=== PATIENT | male | born 1950 | race Caucasian/White ===

== ENCOUNTER 2021-08-12 12:42 | Observation (INO) ==
[2021-08-12 13:36] LABS: Basophils # 0.1 K/mcL (0.0-0.2); Basophils % 0.8 %; Eosinophils # 0.4 K/mcL (0.0-0.6); Eosinophils % 4.5 %; Hematocrit 39.6 % (37.5-50.1); Hemoglobin 12.8 g/dL (12.9-16.9); Immature Granulocytes % 1.4 % (0-4); Lymphocytes # 1.7 K/mcL (0.6-4.6); Mean Corpuscular HGB Conc 32.3 g/dL (31.6-35.5); Mean Corpuscular Hemoglobin 30.5 pg (28.0-33.3); Mean Corpuscular Volume 94.3 fL (83.0-100.0); Mean Platelet Volume 10.4 fL (9.4-12.4); Monocytes # 0.8 K/mcL (0.0-1.3); Neutrophils # 5.5 K/mcL (1.6-8.9); Platelet Count 175 K/mcL (140-400); Segmented Neutrophils % 64.3 %; White Blood Count 8.5 K/mcL (4.3-11.1)
[2021-08-12 13:57] LABS: BUN/Creatinine Ratio 23 (6-26); Blood Urea Nitrogen 34 mg/dL (8-23); Calcium 9.3 mg/dL (8.6-10.3); Carbon Dioxide 22 mEq/L (23-29); Chloride 106 mEq/L (98-107); Glucose 175 mg/dL (70-105); Osmolality,Calculated 294 (280-300); Potassium 4.7 mEq/L (3.5-5.1); Sodium 136 mEq/L (136-145); Troponin I < 0.03 ng/mL (< 0.04); eGFR For African Americans 59 (> 60); eGFR For Non-African Americans 48 (> 60)
[2021-08-12] MEDS ORDERED: D5% in Water 1,000 ML IVC PRN (14:59)
[2021-08-12] MEDS ORDERED: Acetaminophen 325 MG TABLET PO PRN (14:59)
[2021-08-12] MEDS ORDERED: Naloxone 0.4 MG/ML INJ IVP PRN (14:59)
[2021-08-12] MEDS ORDERED: *HR* Dextrose 50 % in Water (Syg) 50 ML SYRINGE IVP PRN (14:59)
[2021-08-12] MEDS ORDERED: Dextrose 4 GM Chewable Tablets PO PRN ×2 (14:59)
[2021-08-12] MEDS ORDERED: Perflutren Lipid Microsphere 1.3 ML in 0.9 % Sodium Chloride 8.7 ML IVP PRN (15:00)
[2021-08-12] MEDS ORDERED: Furosemide 40 MG/4 ML VIAL IVP ONE (15:30)
[2021-08-12] MEDS: Insulin LISPRO 300 UNITS/3 ML VIAL SUBQ SCH (16:15)
[2021-08-12] MEDS: *HR* Heparin 5,000 UNIT/ML VIAL SQ SCH (16:19)
[2021-08-12] MEDS ORDERED: carvediloL 25 MG TABLET PO SCH (17:00)
[2021-08-12 18:22] LABS: Troponin I 0.03 ng/mL (< 0.04)
[2021-08-12 18:37] LABS: Thyroid Stimulating Hormone 4.902 mcIU/mL (0.340-5.600)
[2021-08-12] MEDS: Sacubitril/Valsartan 24/26 MG 1 TABLET PO SCH (20:48)
[2021-08-12] MEDS ORDERED: Insulin DETEMIR 100 UNIT/ML X5UNITS SUBQ SCH (21:00)
[2021-08-13] MEDS ORDERED: Ipratropium/Albuterol Neb 3 ML IH ONE (00:37)
[2021-08-13] MEDS: *HR* Heparin 5,000 UNIT/ML VIAL SQ SCH (05:01)
[2021-08-13 05:37] LABS: Calcium 9.4 mg/dL (8.6-10.3); Chol/HDL Ratio 4.7 (0-4.9); Potassium 4.7 mEq/L (3.5-5.1)
[2021-08-13 05:46] LABS: Basophils # 0.1 K/mcL (0.0-0.2); Basophils % 0.9 %; Eosinophils # 0.4 K/mcL (0.0-0.6); Eosinophils % 4.5 %; Hematocrit 38.4 % (37.5-50.1); Hemoglobin 12.2 g/dL (12.9-16.9); Immature Granulocytes % 1.7 % (0-4); Lymphocytes # 1.6 K/mcL (0.6-4.6); Lymphocytes % 21.3 %; Mean Corpuscular HGB Conc 31.8 g/dL (31.6-35.5); Mean Corpuscular Hemoglobin 30.5 pg (28.0-33.3); Mean Platelet Volume 10.6 fL (9.4-12.4); Monocytes # 0.8 K/mcL (0.0-1.3); Monocytes % 9.7 %; Neutrophils # 4.8 K/mcL (1.6-8.9); Platelet Count 171 K/mcL (140-400); Red Cell Distribution Width 15.1 % (11.5-14.5); Segmented Neutrophils % 61.9 %; White Blood Count 7.7 K/mcL (4.3-11.1)
[2021-08-13 06:16] LABS: Estimated Average Glucose 189 mg/dl; Hemoglobin A1C 8.2 %
[2021-08-13 07:46] VITALS: PULSE 58; O2SAT 96
[2021-08-13] MEDS: Sacubitril/Valsartan 24/26 MG 1 TABLET PO SCH (07:56)
[2021-08-13] MEDS ORDERED: carvediloL 25 MG TABLET PO SCH (08:00)
[2021-08-13] MEDS: Insulin LISPRO 300 UNITS/3 ML VIAL SUBQ SCH ×2 (08:29→11:42)
[2021-08-13] MEDS ORDERED: Loratadine 10 MG TABLET PO SCH (09:00)
[2021-08-13] MEDS ORDERED: Torsemide 20 MG TABLET PO SCH (09:00)
[2021-08-13] MEDS ORDERED: Aspirin 81 MG TAB.CHEW PO SCH (09:00)
[2021-08-13 11:13] VITALS: BP 134/70; TEMP 97.8
== END 2021-08-13 14:35 | disposition home or self-care (01) ==
LOC: 3BNU 12:42 → EMEROOARM 12:42 → 3BNU 15:00
PROVIDERS: ADMIT Internal Medicine; ATTEND Internal Medicine